=== PATIENT | female | born 1965 | race Caucasian/White ===

== ENCOUNTER 2022-10-07 15:46 | Emergency (ER) | payer OTHER ==
[2022-10-07] MEDS ORDERED: HYDROmorphone 1 MG/ML Syringe IM ONE (16:32)
[2022-10-07] MEDS ORDERED: Ondansetron 4 MG Tab.DIS PO ONE (17:23)
== END 2022-10-07 17:35 | disposition home or self-care (01) ==
LOC: JP.ED 15:46
DX: S42.211A Unspecified displaced fracture of surgical neck of right humerus, initial encounter for closed fracture (principal); W18.40XA Slipping, tripping and stumbling without falling, unspecified, initial encounter; Y93.H1 Activity, digging, shoveling and raking
CPT/HCPCS: 73060; 96372; 99283; J1170; Q0162